=== PATIENT | male | born 1995 | race African-American/Black ===

== ENCOUNTER 2016-12-30 22:52 | Emergency (ER) | payer MEDICAID, OTHER ==
[~2016-12-30] VITALS: Ht 172.7 cm; Wt 69.0 kg
[~2016-12-30 22:52] MED LIST: UNKNOWN MEDICATION
[2016-12-31] MEDS ORDERED: MAGNESIUM/ALUMINUM HYDROXIDE/SIMETHICONE 30ML UDC PO STA (02:53)
[2016-12-31] MEDS ORDERED: ACETAMINOPHEN 325MG TABLET PO STA (02:53)
[2016-12-31] MEDS ORDERED: ONDANSETRON 4MG ODT PO STA (02:53)
[2016-12-31 03:07] LABS: HEMATOCRIT. 48.3 % (42.0-52.0); HEMOGLOBIN. 16.1 g/dL (14.0-18.0); MEAN CORPUSCULAR HEMOGLOBIN 29.5 pg (28.0-32.0); MEAN CORPUSCULAR HGB CONC 33.4 g/dL (31.0-37.0); MEAN CORPUSCULAR VOLUME 88.4 fL (80.0-94.0); MEAN PLATELET VOLUME 7.4 fl (7.4-10.4); PLATELET 261 x1000/uL (130-400); RED BLOOD CELL COUNT 5.46 mill/uL (4.7-6.1); RED CELL DISTRIBUTION WIDTH 13.1 % (11.6-14.6); WHITE BLOOD COUNT 2.9 x1000/uL (4.5-11.0)
[2016-12-31 03:08] LABS: DIFFERENTIAL COMMENT 1
[2016-12-31 03:21] LABS: ALANINE AMINOTRANSFERASE 25 IU/L (13-61); ANION GAP 15; CALCIUM 9.2 mg/dL (8.5-10.1); CARBON DIOXIDE 25 mEq/L (21-32); CHLORIDE 100 mEq/L (98-107); INDEX HEMOLYSI 1 (1-3); INDEX ICTERIC 1 (1-4); INDEX LIPEMIC 1 (1-3); LIPASE 100 IU/L (73-393); UREA NITROGEN BLOOD 11 mg/dL (7-21); eGFR > 60 mL/min (>60)
[2016-12-31 03:38] LABS: CLARITY URINE CLEAR (CLEAR); COLOR URINE DARK YELLOW (YELLOW); GLUCOSE URINE NEGATIVE (NEGATIVE); KETONES URINE NEGATIVE (NEGATIVE); LEUKOCYTE ESTERASE URINE NEGATIVE (NEGATIVE); NITRITE URINE NEGATIVE (NEGATIVE); OCCULT BLOOD URINE 3+ (NEGATIVE); PH URINE 5.5 (4.5-8.0); PROTEIN URINE 1+ (NEGATIVE)
[2016-12-31 04:17] LABS: BACTERIA URINE 1+; SQUAMOUS EPITHELIAL CELL URINE 1+ /lpf (RARE/1+); WBC URINE 0-2 /hpf (0-2)
[2016-12-31 04:29] VITALS: BP 123/80
[2016-12-31 05:52] LABS: ATYPICAL LYMPHOCYTES 2; PLATELET ESTIMATE NORMAL
== END 2016-12-31 05:22 | disposition home or self-care (01) ==
LOC: ER 12-31 01:39
DX: R10.9 Unspecified abdominal pain (principal); Z88.0 Allergy status to penicillin; Z88.8 Allergy status to other drugs, medicaments and biological substances; Z79.899 Other long term (current) drug therapy
CPT/HCPCS: 36415; 80053; 81001; 83690; 85025; 99284; Q0162